=== PATIENT | male | born 1985 | race Caucasian/White ===

== ENCOUNTER 2018-01-22 21:18 | Emergency (ER) | END 2018-01-22 22:10 | disposition home or self-care (01) ==

== ENCOUNTER 2018-02-15 21:56 | Emergency (ER) | END 2018-02-16 03:46 | disposition home or self-care (01) ==

== ENCOUNTER 2018-11-20 20:00 | Emergency (ER) | payer OTHER ==
[~2018-11-20] VITALS: Wt 159.1 kg
[~2018-11-20 20:00] MED LIST: DENIES MEDS; DOXY100T20 PO; HYDR-3980 PO; HYDR-4011 PO; IBUP-1542 PO
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
[2018-11-20] MEDS ORDERED: KETOROLAC 60 MG INJ IM STA (22:31)
[2018-11-20] MEDS ORDERED: morphine 4 MG/ML VIAL IM STA (22:31)
[2018-11-20] MEDS ORDERED: IBUP800T48 PO (23:52)
[2018-11-20] MEDS ORDERED: META-121 PO (23:53)
[2018-11-21 00:15] VITALS: BP 174/98; PULSE 112; RESP 18
[2018-11-21] MEDS ORDERED: HYDROCODONE/APAP (10/325) TAB PO ONE (00:30)
== END 2018-11-21 01:54 | disposition left against medical advice (07) ==
LOC: FTE 20:00
DX: M54.5 Low back pain (principal)
CPT/HCPCS: J1885; J2270; 96372

== ENCOUNTER 2018-12-06 22:32 | Emergency (ER) | payer OTHER ==
[~2018-12-06] VITALS: Ht 188 cm; Wt 136.0 kg
[~2018-12-06 22:32] MED LIST changes: +IBUP800T48 PO; +META-121 PO
[2018-12-06 23:01] VITALS: Ht 188 cm; Wt 136.0 kg
[2018-12-07] MEDS ORDERED: HYDR-4011 PO (03:22)
--- NOTE | 2018-12-07 03:24 | ERD ---
ER Documentation Chief Complaint Chief Complaint WEAKNESS AND FATIGUE X TODAY HPI 33 year-old male presents for bilateral leg pain times 4 days. Patient states that he used to take [place] for chronic pain and he states he ran out on Thursday and began having withdrawals. He continues to have bilateral leg pain. Denies nausea or vomiting. Denies fevers or chills. ROS All systems reviewed and are negative except as per history of present illness. Medications Home Meds Active Scripts Hydrocodone/Acetaminophen ([place] 5-325 Tablet) 1 Each Tablet, 1 EACH PO Q6H PRN for PAIN, #10 TAB Prov:ALEYDADEAN 12/07/18 Metaxalone* (Skelaxin*) 800 Mg Tablet, 800 MG PO TID PRN for MUSCLE SPASMS, #20 TAB Prov:LESLIE WHITLEY F 11/20/18 Ibuprofen* (Motrin*) 800 Mg Tab, 800 MG PO Q6H PRN for PAIN AND OR ELEVATED TEMP, #30 TAB Prov:KELVIN WHITLEYAR F 11/20/18 Hydrocodone/Acetaminophen ([place] 10-325 Tablet) 1 Each Tablet, 1 TAB PO Q6H PRN for PAIN, #7 TAB Prov:HUSAM RYAN PA-C 02/16/18 Hydrocodone/Acetaminophen ([place] 5-325 Tablet) 1 Each Tablet, 1 TAB PO Q6H PRN for PAIN, #12 TAB Prov:MIKAL,HUA 01/22/18 Doxycycline Hyclate* (Doxycycline Hyclate*) 100 Mg Tablet.dr, 100 MG PO BID for 10 Days, TAB Prov:MIKAL,HUA 01/22/18 Ibuprofen* (Motrin*) 600 Mg Tab, 600 MG PO Q6H PRN for PAIN AND OR ELEVATED TEMP, #30 TAB Prov:SELINA ECHEVARRIA NP 09/16/16 Hydrocodone/Acetaminophen ([place] 5-325 Tablet) 1 Each Tablet, 1 TAB PO Q6H PRN for PAIN, #7 TAB Prov:MIKE MACKEY PA-C 08/28/16 Reported Medications [Denies Meds] No Conflict Check 09/19/10 Allergies Allergies: Coded Allergies: No Known Drug Allergy (Verified Allergy, Mild, 02/15/18) PMhx/Soc History of Surgery: No Anesthesia Reaction: No Hx Neurological Disorder: No Hx Respiratory Disorders: No Hx Cardiac Disorders: No Hx Psychiatric Problems: No Hx Miscellaneous Medical Probl: Yes (Chronic Back Pains, hydrocele and varicocele) Hx Alcohol Use: No Hx Substance Use: No Hx Tobacco Use: No Smoking Status: Never smoker Physical Exam Vitals Vital Signs Date Temp Pulse Resp B/P (MAP) Pulse Ox O2 O2 Flow FiO2 Time Delivery Rate 12/06/18 99.7 96 20 210/82 99 23:01 (124) Physical Exam Const: No acute distress Resp: Clear to auscultation bilaterally Cardio: Regular rate and rhythm, no murmurs, bilateral dorsalis pedis pulses intact Abd: Soft, non tender, non distended. Normal bowel sounds Skin: No petechiae or rashes Back: No midline or flank tenderness Ext: Mild tenderness to palpation to the bilateral lower extremities diffusely, 5 out of 5 muscle strength bilateral lower extremities Neur: Awake and alert, bilateral lower extremity sensation intact Psych: Normal Mood and Affect Procedures/MDM Medical Decision Making: Differential diagnosis includes but not limited to muscle strain, ligamentous sprain, fracture, dislocation Patient appeared well on physical exam. Low suspicion for fracture dislocation given no history of trauma no obvious deformities. There is no point tenderness. Patient likely has muscle strain Prescription(s): Patient given prescription for [place] low-dose short course. Patient advised to follow up with PCP in 1-2 days. Patient advised to return to ED for new or worsening symptoms. Patient stable on discharge from the ED. The patient has been prescribed [place] during this encounter. The patient has been warned about the use of narcotics. The patient should not drive or operate heavy machinery while taking this medication. The patient was also warned about the addictive properties of narcotic medications. Narcan prescription was NOT provided given the following criteria 1. No more than 5 tablets of [place] 10 mg or 10 tablets of [place] 5 mg were prescribed. 2. Concomitant opiate and benzodiazepine prescriptions were not provided. 3. There is no obvious evidence of prior history of opiate abuse or overdose. Disclaimer: Inadvertent spelling and grammatical errors are likely due to EHR/dictation software use and do not reflect on the overall quality of patient care. Also, please note that the electronic time recorded on this note does not necessarily reflect the actual time of the patient encounter. Departure Diagnosis: Primary Impression: Leg pain Laterality: bilateral Qualified Codes: M79.604 - Pain in right leg; M79.605 - Pain in left leg Condition: Fair Patient Instructions: Pain Management Additional Instructions: Call your primary care doctor TOMORROW for an appointment during the next 1-2 days.See the doctor sooner or return here if your condition worsens before your appointment time. DEAN MAYNARD DO Dec 07, 2018 03:24
[2018-12-07 03:34] VITALS: BP 165/96; PULSE 102; RESP 19
== END 2018-12-07 03:37 | disposition home or self-care (01) ==
LOC: FTE 22:32
DX: M79.605 Pain in left leg (principal)
CPT/HCPCS: 99283

== ENCOUNTER 2018-12-11 17:16 | Emergency (ER) | payer OTHER ==
[~2018-12-11] VITALS: Ht 180.3 cm; Wt 130.0 kg
[2018-12-11 17:36] VITALS: BP 144/92; PULSE 117; RESP 20; Ht 180.3 cm; Wt 130.0 kg
[2018-12-11] MEDS ORDERED: IBUP-1542 PO (19:05)
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
== END 2018-12-11 19:22 | disposition home or self-care (01) ==
LOC: E/R 17:16
DX: I83.92 Asymptomatic varicose veins of left lower extremity (principal)
CPT/HCPCS: 99282